=== PATIENT | female | born 1965 | race Hispanic/Latino ===

== ENCOUNTER → 2018-07-01 | Day surgery (SDC) | payer OTHER ==
[2018-06-25 13:54] LABS: BASOPHILS % 0.5 % (0.0-1.0); EOSINOPHILS # (AUTO) 0.1 (0.0-0.4); EOSINOPHILS % 1.3 % (0.0-6.0); HEMATOCRIT 36.3 % (34.2-44.1); LYMPHOCYTES % 31.9 % (18.0-39.1); MEAN CORPUSCULAR HEMOGLOBIN 28.8 pg (28-32); MEAN CORPUSCULAR HGB CONC 33.1 g/dL (31-35); MEAN CORPUSCULAR VOLUME 87.3 fL (81-99); MONOCYTES # (AUTO) 0.5 (0.2-0.8); MONOCYTES % 7.4 % (4.4-11.3); NEUTROPHILS # (AUTO) 3.6 (2.1-6.9); NEUTROPHILS % 58.4 % (38.7-80.0); PLATELET COUNT 296 x10e3/uL (140-360); RED BLOOD COUNT 4.16 x10e6/uL (3.6-5.1); RED CELL DISTRIBUTION WIDTH 12.8 % (11.7-14.4)
[2018-06-25 14:11] LABS: ANION GAP 11.9 mmol/L (8-16); BLOOD UREA NITROGEN 14 mg/dL (7-26); BUN/CREATININE RATIO 20 (6-25); CALCIUM 9.9 mg/dL (8.4-10.2); CARBON DIOXIDE 30 mmol/L (22-29); CHLORIDE 104 mmol/L (98-107); CREATININE, SERUM 0.71 mg/dL (0.57-1.11); EST GLOMERULAR FILTRATION RATE > 60 ML/MIN (60-); GLUCOSE 92 mg/dL (74-118); POTASSIUM 3.9 mmol/L (3.5-5.1); SODIUM 142 mmol/L (136-145)
--- NOTE | 2018-06-25 14:37 | Diagnostic Imaging Report ---
EXAMINATION: CHEST 2 VIEWS INDICATION: \S\MD ORDER \S\PRE ADMIT COMPARISON: None FINDINGS: PA and lateral views TUBES and LINES: None. LUNGS: Lungs are well inflated. Lungs are clear. There is no evidence of pneumonia or pulmonary edema. PLEURA: No pleural effusion or pneumothorax. HEART AND MEDIASTINUM: The cardiomediastinal silhouette is unremarkable. BONES AND SOFT TISSUES: No acute osseous lesion. Cervical spine fusion hardware. Soft tissues are unremarkable. UPPER ABDOMEN: No free air under the diaphragm. IMPRESSION: No acute thoracic abnormality. Signed by: Dr. Ant Wyatt MD on 06/25/2018 2:33 PM
[~2018-07-01] MED LIST: AZELASTINE137 MCG/0.; BETAMETHASONE DISODIUM PHOS 6 MG/ML VIAL ONE; BUPIVACAINE HCL 0.5% INJ 30 ML VIAL INJ ONE; CEFAZOLIN SOD 1 GM VIAL ONE; DEXAMETHASONE SOD PHOS INJ 4 MG/ML VIAL ONE; EQUATE ALLERGY PO; FENTANYL CITRATE/PF 100MCG/2 ML INJ ONE; FLONASE; HYDROCORTISONE OP; KETOROLAC TROMETHAMINE 30 MG/ML VIAL ONE; LIDOCAINE HCL 1% LOCAL INJ 20 ML VIAL ONE; LIDOCAINE HCL 2% LOCAL INJ 5 ML SDV VIAL INJ ONE; MIDAZOLAM HCL 2 MG/2 ML VIAL ONE; MONTELUKAST SOD10 MG PO; MUPIROCIN 2% OINT 22 GM TUBE ONE; ONDANSETRON HCL INJ 2 MG/ML VIAL ONE; PRISTIQ50 MG PO; PROPOFOL IV EMULSION 10 MG/ML 20 ML VIAL ONE; PROZAC40 MG PO; SALINE NOSE SPR45 ML; SEVOFLURANE INHAL SOLN 250 ML PEN BTL ONE; TREZIX PO; VENLAFAXINE HCL75 M1 PO; Z.1.CETIRIZINE HCL10 PO
--- NOTE | 2018-07-01 09:40 | Diagnostic Imaging Report ---
PROCEDURE:X-RAY LEFT FOOT, TWO VIEWS COMPARISON:None. INDICATIONS:POST LEFT FOOT SURGERY FINDINGS: See conclusion. CONCLUSION: AP and lateral post-operative views of the left foot with overlying bandage material show post-surgical changes of a bunionectomy and arthroplasty with wire and screw through the distal first metatarsal and K wires through the second, third and fourth digits. There is surrounding soft-tissue swelling consistent with recent surgery. Surgical drain is noted in the plantar aspect of the foot. Please refer to performing physician's notes for full details of this procedure. Freddie Arroyo D.O. Dictated by: Freddie Arroyo D.O. on 07/01/2018 at 9:47 Electronically approved by: Freddie Arroyo D.O. on 07/01/2018 at 9:47
[2018-07-01 10:05] VITALS: BP 184/99
--- NOTE | 2018-07-01 10:08 | Operative Report ---
DATE OF PROCEDURE: July 01, 2018 PREOPERATIVE DIAGNOSES 1. Painful contracted hammertoe, 2nd toe, left foot. 2. Painful contracted hammertoe, 3rd toe, left foot. 3. Painful contracted hammertoe, 4th toe, left foot. 4. Heel spur syndrome, left foot. 5. 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 6. Arroyo's neuroma, 3rd interspace, left foot. 7. 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 8. Tarsal tunnel syndrome with neuralgia of the medial plantar nerve, left foot. 9. Tarsal tunnel syndrome with neuralgia of the lateral plantar nerve, left foot. POSTOPERATIVE DIAGNOSES 1. Painful contracted hammertoe, 2nd toe, left foot. 2. Painful contracted hammertoe, 3rd toe, left foot. 3. Painful contracted hammertoe, 4th toe, left foot. 4. Heel spur syndrome, left foot. 5. 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 6. Arroyo's neuroma, 3rd interspace, left foot. 7. 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 8. Tarsal tunnel syndrome with neuralgia of the medial plantar nerve, left foot. 9. Tarsal tunnel syndrome with neuralgia of the lateral plantar nerve, left foot. OPERATIVE PROCEDURES 1. Arthroplasty, 2nd digit, left foot with K-wire fixation. 2. Arthroplasty, 3rd digit, left foot with K-wire fixation. 3. Arthroplasty, 4th digit, left foot with K-wire fixation. 4. Excision of neuroma, 2nd interspace, left foot. 5. Excision of neuroma, 3rd interspace, left foot. 6. Resection of plantar calcaneal heel spur with plantar fascia release, left foot. 7. Neurolysis of tibia nerve, left foot. 8. Neurolysis of medial and lateral plantar nerve, left foot. 9. Neurolysis of lateral plantar nerve, left foot. 10. Intraoperative use of fluoroscopy. 11. Trigger point shot of cortisone. 12. Application of posterior splint. ANESTHESIA: General. HEMOSTASIS: Pneumatic thigh tourniquet at 350 mmHg. PROCEDURE IN DETAIL: Patient was taken into the operating room and placed on the operating room table in the supine position. Following induction of general anesthesia by the anesthesiologist, Webril wraps were placed on the patient's left thigh followed by application of a left thigh tourniquet. The left lower extremity was then prepped and draped in the usual aseptic manner. The following procedure was then performed. PROCEDURE #1-3: Arthroplasty, 2nd through 4th digits with K-wire fixation. Attention was directed to the 2nd, 3rd, and 4th toes where a 3 cm linear incision was performed overlying the proximal interphalangeal joint. The incision was deepened down to the joint capsule. A transverse capsulotomy was then performed exposing the head of the proximal phalanxes. Via the use of an oscillating saw, the head of the proximal phalanxes were excised from the operation site in toto. Toes were still noted to be contracted, so a 0.045 K-wire was introduced crossing the proximal interphalangeal joint up the metatarsophalangeal joint to achieve proper anatomic reduction. PROCEDURES #4 AND #5: Excision of Arroyo neuroma, 2nd and 3rd interspace, left foot. Attention was then directed to the 2nd and 3rd interspace of the left foot where a curvilinear incision was performed. The incision was deepened via blunt and sharp dissection being careful to retract any vital structures and ligate any superficial vessels as necessary. Once the level of the intermetatarsal ligament was reached, utilizing Metzenbaum scissors, the intermetatarsal ligament was cut exposing a white soft tissue mass resembling a Arroyo's neuroma to the 2nd and 3rd interspace. Via the use of meticulous dissection, the neuromas were excised from the operation site in toto and sent for pathological analysis. PROCEDURE #6: Resection of plantar calcaneal heel spur, partial plantar fascia release. Attention was then directed to the medial aspect of left heel where a 4-5 cm linear incision was performed. The incision was deepened down to the plantar fascia level. The plantar fascia was then clearly visualized. The medial one-half of the plantar fascia was then cut exposing the plantar calcaneal spur. Via the use of a reciprocating bur, the spur was excised from the operation site in toto. PROCEDURES 7, 8 AND 9: Neurolysis of tibia nerve, neurolysis of medial plantar nerve and neurolysis of lateral plantar nerve. Attention was then directed to the heel tarsal canal where a 6 cm curvilinear incision was performed. The incision was deepened via sharp and blunt dissection being careful to retract any vital structures and ligate superficial vessels as necessary. Once the level of the flexor retinaculum was reached, the flexor retinaculum was then cut via the use of Metzenbaum scissors. The tibial nerve was then isolated and released from all soft tissue adhesions. The incision was then deepened down to the donna pedis. The donna pedis was then cut to allow for proper diving of the nerve. The tibial nerve was then taken down to the medial and lateral plantar nerve branches, and all adhesions were released via sharp and blunt dissection. PROCEDURE #10: Intraoperative use of fluoroscopy was then used to make sure proper alignment and fixation were achieved. Closure was then obtained utilizing 3-0 Vicryl, 4-0 Vicryl and 4-0 nylon for capsule, subcutaneous tissue and skin respectively. PROCEDURE #11: Trigger point shot of cortisone was given to the 2nd and 3rd interspace of the left foot and also the left heel. Then approximately 15 mL of 0.5% plain Marcaine plus 5 mL of 1% Xylocaine plain were used to achieve local anesthesia the above-mentioned surgical area. Sterile dressing was applied. Upon release of the thigh tourniquet, blood hyperemia was noted immediate to all digits of the patient's left foot. PROCEDURE #12: Application of posterior splint. A properly placed posterior splint was applied keeping the foot at 90 degrees with respect to the leg to try to prevent any type of postoperative complications. Patient was then transferred from the OR to the recovery room with vital signs stable and neurovascular status intact. No intraoperative complications were encountered. Blood loss from the surgery was minimal. Patient is to remain nonweightbearing with the aid of crutches. Keep her foot elevated. Is to apply an ice pack to the ankle joint area. Job#: [id number]
== END | disposition home or self-care (01) ==
LOC: OR 05:31
PROVIDERS: ATTEND Podiatrist Foot Surgery
DX: M20.42 Other hammer toe(s) (acquired), left foot (principal); M77.32 Calcaneal spur, left foot; G57.62 Lesion of plantar nerve, left lower limb; G57.52 Tarsal tunnel syndrome, left lower limb; G58.8 Other specified mononeuropathies; J34.89 Other specified disorders of nose and nasal sinuses; F41.9 Anxiety disorder, unspecified; Z91.048 Other nonmedicinal substance allergy status; Z01.810 Encounter for preprocedural cardiovascular examination; Z01.812 Encounter for preprocedural laboratory examination; Z01.818 Encounter for other preprocedural examination
CPT/HCPCS: 28035; 28080 ×2; 28119; 28285 ×3; 36415; 64704 ×2; 71046; 73620; 80048; 85025; 88304; 93005; J0690; J0720; J1100; J1885; J2001 ×2; J2250; J2405

== ENCOUNTER → 2024-05-24 | Outpatient (REF) | payer OTHER ==
[~2024-05-24] MED LIST changes: +ALPRAZOLAM0.5 M1 PO; +AMLODIPINE BESYL5 MG PO; -BETAMETHASONE DISODIUM PHOS 6 MG/ML VIAL ONE; +BREO ELLIPTA 11 EACH INH; -BUPIVACAINE HCL 0.5% INJ 30 ML VIAL INJ ONE; -CEFAZOLIN SOD 1 GM VIAL ONE; +CELEBREX200 MG PO; +CITRACAL + D E1 EACH; -DEXAMETHASONE SOD PHOS INJ 4 MG/ML VIAL ONE; +DICYCLOMINE HCL20 MG PO; +DIOVAN160 MG PO; -FENTANYL CITRATE/PF 100MCG/2 ML INJ ONE; -KETOROLAC TROMETHAMINE 30 MG/ML VIAL ONE; -LIDOCAINE HCL 1% LOCAL INJ 20 ML VIAL ONE; -LIDOCAINE HCL 2% LOCAL INJ 5 ML SDV VIAL INJ ONE; +MEDROL4 M2 PO; -MIDAZOLAM HCL 2 MG/2 ML VIAL ONE; +MULTI-VITAMIN1 EACH PO; -MUPIROCIN 2% OINT 22 GM TUBE ONE; +NEURONTIN300 MG PO; +OMEPRAZOLE40 MG PO; -ONDANSETRON HCL INJ 2 MG/ML VIAL ONE; +ORPHENADRINE C100 MG PO; +PROBIOTIC PO; -PROPOFOL IV EMULSION 10 MG/ML 20 ML VIAL ONE; +PROVENTIL HFA6.7 GM INH; -SEVOFLURANE INHAL SOLN 250 ML PEN BTL ONE; +VENLAFAXINE HCL75 M2 PO
== END ==
LOC: US 08:16
PROVIDERS: ATTEND Otolaryngology
DX: E04.2 Nontoxic multinodular goiter (principal); E06.9 Thyroiditis, unspecified; R13.10 Dysphagia, unspecified
CPT/HCPCS: 10005; 10006; 88112; 88172; 88173; 88305

== ENCOUNTER 2025-06-01 15:01 | Emergency (ER) | payer OTHER ==
[~2025-06-01] VITALS: Ht 165.1 cm; Wt 73.5 kg
[2025-06-01 15:53] VITALS: TEMP 98.7
[2025-06-01 16:03] LABS: BASOPHILS % 0.3 % (0.0-1.0); EOSINOPHILS % 1.9 % (0.0-6.0); LYMPHOCYTES % 21.5 % (18.0-39.1); MONOCYTES % 6.7 % (4.4-11.3); NEUTROPHILS % 69.3 % (38.7-80.0); RED CELL DISTRIBUTION WIDTH 12.9 % (11.7-14.4)
[2025-06-01] MEDS ORDERED: SODIUM CHLORIDE FLUSH 10 ML SYR INJ PRN (16:15)
[2025-06-01 16:25] LABS: EST GLOMERULAR FILTRATION RATE 92.0 ML/MIN (>=60)
[2025-06-01 17:48] VITALS: PULSE 84; RESP 16
[2025-06-01 19:07] VITALS: BP 115/81; PULSE 80; RESP 16; O2SAT 100
== END 2025-06-01 19:12 | disposition home or self-care (01) ==
LOC: ER 17:51
DX: R06.00 Dyspnea, unspecified (principal); R07.89 Other chest pain; I10 Essential (primary) hypertension; M54.9 Dorsalgia, unspecified; G89.29 Other chronic pain; F41.9 Anxiety disorder, unspecified; Z86.73 Personal history of transient ischemic attack (TIA), and cerebral infarction without residual deficits
CPT/HCPCS: 36415; 71045; 80053; 82550; 83690; 83880; 84484; 85025; 93005; 99284